=== PATIENT | female | born 1995 | race Caucasian/White ===

== ENCOUNTER 2020-02-18 03:24 | Emergency (ER) | payer BC, SELFPAY ==
--- NOTE | ~2020-02-18 | XR_ITS ---
EXAMINATION: XR chest 2V DATE: 02/18/2020 04:19 INDICATION: Cough. TECHNIQUE: Frontal and lateral views of the chest were obtained. COMPARISON: None. FINDINGS: The chest demonstrates clear lungs without pneumonia, pleural effusion, or pneumothorax. Th e heart size is normal. IMPRESSION: 1. No acute cardiopulmonary disease. Reviewed, dictated and finalized at location A.
[2020-02-18 03:29] VITALS: BP 138/88; PULSE 74; RESP 20; TEMP 36.3; O2SAT 100
--- NOTE | 2020-02-18 03:33 | ED.GENADULT ---
HPI - General Adult General Chief complaint: Unspecified Stated complaint: Striking up when breathing Time Seen by Provider: 02/18/20 03:32 Source: patient Mode of arrival: EMS Limitations: no limitations History of Present Illness HPI narrative: Pt is a 24 yo female who presents for evaluation of pain with inspiration. Pt reports intermittent burning sensation in lungs after she sprayed chemicals onto carts at [facility] 3 days ago. Patient reports intermittent chest pain. She denies any chest pain currently. She reports that her lungs feel irritated. She denies fever, chills, rhinorrhea. She reports dry cough. She denies any myalgias. No recent sick contacts. No rashes. No fevers. Patient does not smoke. No history of asthma or lung disorders. Related Data Allergies Allergy/AdvReac Type Severity Reaction Status Date / Time No Known Allergies Allergy Verified 02/18/20 03:33 Review of Systems Review of Systems: Narrative: CONSTITUTIONAL: Denies fever, chills, or sweats. ENT: Denies rhinorrhea, congestion, sore throat, or otalgia. CARDIOVASCULAR: Reports intermittent chest pain, denies palpitations or edema RESPIRATORY: Reports dry cough GASTROINTESTINAL: Denies abdominal pain, nausea, vomiting, or diarrhea. GENITOURINARY: Denies dysuria or hematuria. SKIN: Denies rash or itching. MUSCULOSKELETAL: Denies back pain, joint pain, or myalgia. NEUROLOGIC: Denies headache, numbness, or weakness. [facility] Past Medical History Medical History (Updated 02/18/20 @ 04:33 by Tosha Bridges MD) No pertinent past medical history Surgical History Surgical History (Updated 02/18/20 @ 03:40 by Tosha Bridges MD) No pertinent past surgical history Social History Social History (Updated 02/18/20 @ 03:40 by Tosha Bridges MD) Smoking status: Never smoker Alcohol intake: never Substance use: never Occupation/Education: occupation Additional occupation/education comments: [employer] Gender identity (if verbalized by the patient): Female Exam Narrative: Exam Narrative: GENERAL: Awake, alert, conversant HEAD: Normocephalic, atraumatic. EYES: PERRLA and EOMI. ENT: Nares clear, no rhinorrhea or epistaxis. Mucous membranes moist. NECK: Supple. CHEST: No respiratory distress, breathing even and non labored, lungs clear without wheezing HEART: Regular rate, sinus rhythm ABDOMEN:Non distended, non tender EXTREMITIES: Normal range of motion. No edema. SKIN: Warm, dry, no rash. NEURO:No focal deficits. Alert and oriented x3 Course Course Emergency Course: Patient presented for evaluation of feeling as if her lungs were irritated. She has had intermittent chest pain over the past 3 days, but none currently. No current shortness of breath. EKG shows no acute ischemic changes. Laboratory results show no elevation in troponin. Patient is PERC criteria negative, I doubt PE based on symptoms, vital signs and fact that she does not have criteria that would make this diagnosis likely. Patient may have had some sort of chemical inhalant injury, no sign of consolidation or severe lung injury on chest x-ray. Patient also may have pleurisy which may be due to a virus. She has no coronavirus type symptoms that are severe to warrant admission. Patient was advised to continue symptomatic care and discharged home. Vital Signs Vital signs: Vital Signs Temperature 36.3 C L 02/18/20 03:29 Pulse Rate 74 02/18/20 03:29 Respiratory Rate 20 02/18/20 03:29 Blood Pressure 138/88 02/18/20 03:29 Pulse Oximetry 100 02/18/20 03:29 Temperature 36.3 C L 02/18/20 03:29 Pulse Rate 74 02/18/20 03:29 Respiratory Rate 20 02/18/20 03:29 Blood Pressure 138/88 02/18/20 03:29 Pulse Oximetry 99 02/18/20 04:24 Medical Decision Making Vital Signs Vital Signs: Vital Signs Temperature 36.3 C L 02/18/20 03:29 Pulse Rate 74 02/18/20 03:29 Respiratory Rate 20 02/18/20 03:29 Blood Pressure 138/
--- NOTE | 2020-02-18 03:41 | ECG_ITS ---
Measurements Intervals [place] Rate: 69 P: 10 OR: 146 QRS: -11 QRSD: 87 T: 9 QT: 371 QTc: 399 Interpretive Statements SINUS RHYTHM WITH SINUS ARRHYTHMIA INCOMPLETE RIGHT BUNDLE BRANCH BLOCK LOW QRS VOLTAGE IN PRECORDIAL LEADS VOLTAGE CRITERIA FOR LVH INFERIOR INFARCT, AGE INDETERMINATE BASELINE ARTIFACT- I, II, III, AVR, AVL, AVF, V1-V2 ABNORMAL ECG Electronically Signed On 02-18-2020 11:39:46 CDT by Ernesto Redding D.O.
[2020-02-18 04:13] LABS: Basophils Absolute Auto 0.1 K/mm3 (0.0-0.1); Basophils Percent Auto 0.5 % (0.2-1.2); Eosinophils Absolute Auto 0.2 K/mm3 (0-0.3); Hematocrit 42.5 % (37.0-47.0); Hemoglobin 13.7 g/dL (12.0-15.0); Immature Granulocyte Absolute 0.05 K/mm3 (0.00-0.031); Immature Granulocyte Percent A 0.5 % (0-0.5); Lymphocytes Absolute Auto 3.23 K/mm3 (0.9-3.2); Lymphocytes Percent Auto 33.2 % (18.3-44.2); Mean Corpuscular HGB Conc 32.2 g/dl (32-36); Mean Corpuscular Hemoglobin 27.5 pg (26-34); Mean Corpuscular Volume 85.2 fl (80-100); Mean Platelet Volume 9.5 fl (7.4-10.4); Monocytes Absolute Auto 0.7 K/mm3 (0.1-0.6); Monocytes Percent Auto 7.1 % (2.6-8.5); Neutrophils Absolute Auto 5.5 K/mm3 (1.3-6.7); Neutrophils Percent Auto 56.7 % (45.5-73.1); Platelet Count Result 326 k/mm3 (150-375); Red Blood Count 4.99 M/mm3 (4.2-5.4); Red Cell Distribution Width 14.1 % (11.5-14.5); White Blood Count 9.7 K/mm3 (4.5-10.0)
[2020-02-18 04:23] LABS: INR 0.9; Prothrombin Time 11.5 Seconds (11.1-14.7)
[2020-02-18 04:24] VITALS: O2SAT 99
[2020-02-18 04:24] LABS: Partial Thromboplastin Time 31.5 SECONDS (22.3-36.8)
[2020-02-18 04:29] LABS: Blood Urea Nitrogen 12 mg/dL (7-17); Calcium 9.2 mg/dL (8.4-10.2); Carbon Dioxide 29 mmol/L (22-30); Chloride 103 mmol/L (98-107); Estimated CRCL calculation 154 ml/min; Estimated Glomerular Filt Rate > 60; Glucose 89 mg/dL (65-105); Potassium 4.3 mmol/L (3.4-5.0); Sodium 137 mmol/L (137-145)
[2020-02-18 04:41] LABS: Troponin I < 0.012 ng/mL (0.000-0.034)
[2020-02-18 04:44] VITALS: BP 116/69; PULSE 75; RESP 18; O2SAT 99
[2020-02-18 04:53] VITALS: BP 127/78; PULSE 79; RESP 14; O2SAT 99
== END 2020-02-18 04:55 | disposition home or self-care (01) ==
PROVIDERS: Emergency Provider Emergency Medicine
DX: R07.89 Other chest pain (principal); I45.10 Unspecified right bundle-branch block; R94.31 Abnormal electrocardiogram [ECG] [EKG]
CPT/HCPCS: 36415; 71046; 80048; 84484; 85025; 85610; 85730; 93005; 99284